=== PATIENT | male | born 1940 | race Caucasian/White ===

== ENCOUNTER 2016-12-16 08:07 | Inpatient (IN) ==
[2016-12-16] MEDS ORDERED: CLINDAMYCIN 600 MG/NS 600 MG/50 ML IVPB ONE (08:39)
[2016-12-16] MEDS ORDERED: LR 1,000 ML ONE (08:39)
[2016-12-16] MEDS ORDERED: KETAMINE ONE (09:49)
[2016-12-16] MEDS ORDERED: DIPRIVAN 1% ONE (09:49)
[2016-12-16] MEDS ORDERED: XYLOCAINE-MPF 2% ONE (10:02)
[2016-12-16] MEDS ORDERED: LABETALOL ONE (10:52)
[2016-12-16] MEDS ORDERED: OFIRMEV 1000 MG/ISOTONIC SOLN 1,000 MG/100 ML BOTTLE ONE (10:52)
[2016-12-16] MEDS ORDERED: HUMULIN R IV ONE (11:00)
[2016-12-16] MEDS ORDERED: NS 1,000 ML ONE (11:05)
--- NOTE | 2016-12-16 12:26 | OPERATIVE NOTE ---
PROCEDURE DATE : 12/16/2016 PREOPERATIVE DIAGNOSIS: History of forefoot amputation, now with ulceration at the middle of the sole of the remaining left foot. POSTOPERATIVE DIAGNOSIS: History of forefoot amputation, now with ulceration at the middle of the sole of the remaining left foot. PROCEDURE: 1. Debridement. 2. Anaerobic and aerobic cultures. SURGEON: Gurvinder Sparrow MD. DESCRIPTION OF PROCEDURE: The patient was brought to the operating room. After satisfactory induction of IV and MAC anesthesia, his left foot was prepped and draped in the appropriate manner. The skin around the ulcer was sharply excised. There was a deep boring component heading towards the second metatarsal area. It is possible the patient likely has osteomyelitis. He has been having a lot more pain in his foot. The wound was sharply debrided, and a sterile dressing with Betadine-soaked gauze was applied. He will be admitted for IV antibiotics and have a bone scan tomorrow to rule out osteo in that bone. He may eventually require a [id number] amputation. cc: Gurvinder Sparrow MD
[2016-12-16] MEDS ORDERED: ROBAXIN PO PRN (12:53)
[2016-12-16] MEDS ORDERED: HUMULIN R SUBQ SCH (13:00)
[2016-12-16] MEDS ORDERED: ZOFRAN IV PRN (13:02)
[2016-12-16] MEDS ORDERED: NORCO-10 PO PRN (13:02)
[2016-12-16] MEDS ORDERED: INSULIN PEN NEEDLES ONE (14:40)
[2016-12-16] MEDS: NEURONTIN PO SCH ×2 (14:54→21:39)
[2016-12-16] MEDS: LEVEMIR SUBQ SCH (14:55)
[2016-12-16] MEDS: 1/2 NS 1,000 ML IV SCH (14:56)
[2016-12-16] MEDS: HUMULIN R SUBQ SCH ×3 (15:59→21:40)
[2016-12-16] MEDS: CLINDAMYCIN 600 MG/NS 600 MG/50 ML IVPB IV SCH (17:44)
[2016-12-16] MEDS ORDERED: ZOCOR PO SCH (21:00)
[2016-12-16] MEDS: ULTRAM PO SCH (21:39)
[2016-12-17] MEDS: CLINDAMYCIN 600 MG/NS 600 MG/50 ML IVPB IV SCH ×3 (02:27→19:03)
[2016-12-17] MEDS: HUMULIN R SUBQ SCH ×4 (06:12→21:09)
[2016-12-17 08:33] LABS: MANUAL DIFF NEEDED? NO
[2016-12-17 08:36] LABS: BASO% 0.3 % (0.0-0.8); EOS# 0.03 X1000 (0.0-0.7); EOS% 0.4 % (0.0-10.0); HEMATOCRIT 41.3 % (42.0-52.0); HEMOGLOBIN 13.6 g/dL (14.0-18.0); LYMPH# 0.74 X1000 (1.2-3.4); LYMPH% 10.8 % (20.5-51.1); MCH 30.8 PG (27-31); MCHC 32.9 g/dL (33-37); MCV 93.4 FL (81-99); MONO# 0.63 X1000 (0.11-0.59); MONO% 9.2 % (1.7-9.3); MPV 10.9 FL (7.4-10.4); NEUT% 79.3 % (42.2-75.2); PLT 269 X1000 (130-400); RBC 4.42 XMIL (4.7-6.1)
[2016-12-17 08:49] LABS: AGAP 13; BUN 20 mg/dL (8-22); CALCIUM 9.2 mg/dL (8.8-10.2); CHLORIDE 95 mmol/L (98-107); COSMO 288; POTASSIUM 4.9 mmol/L (3.5-5.1); SODIUM 139 mmol/L (136-145); TCO2 31 mmol/L (25-35)
[2016-12-17] MEDS: ULTRAM PO SCH ×2 (09:21→21:11)
[2016-12-17] MEDS: MOBIC PO SCH (09:21)
[2016-12-17] MEDS: NORVASC PO SCH (09:22)
[2016-12-17] MEDS: PRILOSEC PO SCH (09:22)
[2016-12-17] MEDS: NEURONTIN PO SCH ×3 (09:22→21:12)
[2016-12-17] MEDS: TENORMIN PO SCH (09:22)
[2016-12-17] MEDS: VITAMIN B-12 PO SCH (09:23)
[2016-12-17] MEDS: PATIENT'S OWN MED PO SCH (09:24)
[2016-12-17] MEDS: LEVEMIR SUBQ SCH (09:24)
[2016-12-17] MEDS ORDERED: CUBICIN 500 MG in NS 100 ML IV SCH (10:00)
--- NOTE | 2016-12-17 10:03 | CONSULTATION ---
DATE OF CONSULTATION: 12/17/2016 CONCLUSION: The patient has infection of his left foot. During debridement performed by Dr. Sparrow, it appeared that the infection extended deep and quite possibly could involve the bone. Gram stain of the wound shows gram-positive cocci. RECOMMENDATIONS: I agree with Dr. Sparrow that we should switch to daptomycin. I have discontinued Zocor, while the patient is on daptomycin because the 2 can interact and cause an enhanced possibility of muscle toxicity. The patient is to have a bone scan today to detect if there is a bone infection. I have also ordered a CBC and BMP. ADDENDUM: I discussed with patient's about patient's reaction to daptomycin. It was severe so I will switch back to clindamycin pending culture result. DISCUSSION: The patient about approximately 6-8 weeks ago, developed an ulcer on his left foot. It became deeper and started hurting the patient, and it was also erythematous. The ulcer was debrided yesterday by Dr. Sparrow and in his op report, he says that the wound went deep and possibly to the bone. Gram stain of the material at surgery shows gram- positive cocci. PAST MEDICAL HISTORY/REVIEW OF SYSTEMS: Eyes and ears: Patient has decreased vision and hearing. Respiratory: No cough or shortness of breath. Cardiovascular: No chest pain or palpitations. GI: No nausea, vomiting, or diarrhea. Genitourinary: No dysuria or flank pain. Endocrine: Patient has diabetes but not thyroid disease. Bones, joints, muscles: See present illness on the patient's left foot. No other joint or bone problem. Neurologic: No seizures or loss of motor or sensory function. Integument: No rash. 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 He has had a right shoulder surgery, a surgery on his finger, an appendectomy, and surgery on his ear. MEDICAL DISEASES: Positive for diabetes mellitus, hypertension, hyperlipidemia , osteoarthritis, gastroesophageal reflux disease. INFECTIOUS DISEASE HISTORY: Negative for pneumonia and UTI. FAMILY HISTORY: Positive for diabetes mellitus, hypertension, myocardial infarction, and stroke. SOCIAL HISTORY[place] He does not smoke cigarettes. He occasionally drinks alcoholic beverages. He does not abuse drugs. He is . He has a dog as a pet. ALLERGIES: He has any drug allergies to include codeine, Levaquin, azithromycin , Keflex, daptomycin, enalapril, latex, and sulfa. HOME MEDICATIONS: Methocarbamol, tramadol, omeprazole, meloxicam, insulin, gabapentin, cyanocobalamin, chromium, Zocor, atenolol, and Norvasc. PHYSICAL EXAMINATION: Vital Signs: Temperature is 98 degrees, pulse 128, respirations 12, blood pressure 148/86. General: This is a somewhat ill-appearing elderly male. He is in no acute distress. Head, eyes, ears, nose, and throat: He wears glasses. He is edentulous. He has dentures in. He is very hard of hearing. Neck: No stiffness. Lungs: Clear to auscultation. Cardiovascular: Regular heart rate. Peripheral pulses are palpable. Abdomen: Soft and not tender. Neurologic: Patient is awake. As mentioned above, he is very hard of hearing. He can move his extremities. There is no tremor. His sensation is intact to touch. His memory, as regarding his medical history, was slightly diminished. Integument: No rash. Bones, joints, muscles: The left foot had a large dressing around it. The dressing is intact. Thank you for the consult. cc: MD Gurvinder Rivera MD MTDD
[2016-12-17] MEDS: 1/2 NS 1,000 ML IV SCH ×2 (11:14→13:30)
[2016-12-17] MEDS ORDERED: NS 250 ML ONE (14:57)
[2016-12-17 15:00] LABS: INR 1.05; PROTIME 11.1 Seconds (9.2-11.7)
--- NOTE | 2016-12-17 15:41 | Diag Imaging Result Doc PS360 ---
CHEST-1 VIEW - 12/17/2016 INDICATION: line placement TECHNIQUE: COMPARISON: 11/02/2016 FINDINGS: There is a new left-sided PICC line in good position with the catheter tip at the mid SVC. Stable borderline cardiomegaly. Stable small right pleural effusion. No new infiltrates. IMPRESSION: Good left-sided PICC line placement. Otherwise no change from the prior chest x-ray. Electronically signed by Barrett Mark 12/17/2016 3:39 PM
--- NOTE | 2016-12-17 16:22 | Diag Imaging Result Doc PS360 ---
3 PHASE BONE SCAN - 12/17/2016 INDICATION: R/O osteo left foot TECHNIQUE: 25.5 mCi of MDP was administered. Three-phase bone scan of the feet. COMPARISON: 05/28/2016 FINDINGS: There is significant diffuse hyperemia and blood pool phase activity of the left foot and ankle. On the right side this appears more normal. On the delayed phase, there is significant diffuse uptake throughout the left distal tibia and fibula, as well as all the bones of the foot. IMPRESSION: Severe left foot and ankle cellulitis. Apparent osteomyelitis of the left foot and ankle as well. Electronically signed by Barrett Mark 12/17/2016 4:20 PM
[2016-12-18] MEDS: CLINDAMYCIN 600 MG/NS 600 MG/50 ML IVPB IV SCH ×2 (02:16→11:26)
[2016-12-18] MEDS: HUMULIN R SUBQ SCH ×3 (07:03→11:42)
[2016-12-18 08:31] VITALS: BP 156/73
[2016-12-18] MEDS: TENORMIN PO SCH (09:24)
[2016-12-18] MEDS: NEURONTIN PO SCH (09:24)
[2016-12-18] MEDS: VITAMIN B-12 PO SCH (09:24)
[2016-12-18] MEDS: NORVASC PO SCH (09:24)
[2016-12-18] MEDS: LEVEMIR SUBQ SCH (09:25)
[2016-12-18] MEDS: PRILOSEC PO SCH (09:25)
[2016-12-18] MEDS: MOBIC PO SCH (09:25)
[2016-12-18] MEDS: ULTRAM PO SCH (09:38)
[2016-12-18] MEDS: PATIENT'S OWN MED PO SCH (09:39)
== END 2016-12-18 12:16 | disposition home or self-care (01) ==
LOC: 4N 08:07 → OR 08:07
PROVIDERS: ADMIT Surgery; ATTEND Surgery

== ENCOUNTER 2018-12-27 12:54 | Observation (INO) ==
--- NOTE | 2018-12-27 14:01 | Diag Imaging Result Doc PS360 ---
CHEST-2 VIEWS - 12/27/2018 INDICATION: Admission order COMPARISON: 11/03/2018 FINDINGS: Lungs are somewhat hyperexpanded. There is cardiomegaly and moderate pulmonary vascular congestion. There is a trace right pleural effusion. No left-sided effusion. No significant infiltrates or edema. IMPRESSION: Cardiomegaly and pulmonary vascular congestion. Trace right pleural effusion. Electronically signed by Barrett Mark 12/27/2018 1:59 PM
--- NOTE | 2018-12-27 14:11 | EKG Report ---
Test Performed on : 12/27/2018 1:47:33 PM Test Reason : Admission Order Blood Pressure : / mmHG Vent. Rate : 120 BPM Atrial Rate : 120 BPM P-R Int : 146 ms QRS Dur : 068 ms QT Int : 316 ms P-R-T Axes : 065 095 049 degrees QTc Int : 446 ms Sinus tachycardia. Rightward axis Borderline ECG Confirmed by Melissa RACHEL, Ky Porras ([id number]) on 12/27/2018 5:27:17 PM
[2018-12-27] MEDS ORDERED: KEFZOL 1 GM/D5W 1 GM/50 ML IVPB IV SCH (15:00)
[2018-12-27] MEDS: 1/2 NS 1,000 ML IV SCH (15:17)
[2018-12-27 15:24] LABS: BASO# 0.06 X1000 (0.0-0.2); BASO% 0.9 % (0.0-0.8); EOS# 0.08 X1000 (0.0-0.7); EOS% 1.2 % (0.0-10.0); HEMATOCRIT 36.3 % (42.0-52.0); HEMOGLOBIN 11.3 g/dL (14.0-18.0); IMM GRAN# 0.03 X1000 (0.0-0.04); IMM GRAN% 0.4 % (0.0-0.5); LYMPH# 1.24 X1000 (1.2-3.4); MCH 27.1 PG (27-31); MCHC 31.1 g/dL (33-37); MCV 87.1 FL (81-99); MONO# 1.33 X1000 (0.11-0.59); MONO% 19.3 % (1.7-9.3); MPV 10.5 FL (7.4-10.4); NEUT# 4.14 X1000 (1.4-6.5); NEUT% 60.2 % (42.2-75.2); PLT 320 X1000 (130-400); RBC 4.17 XMIL (4.7-6.1); RDW 14.4 % (11.5-14.5); WBC 6.88 X1000 (4.8-10.8)
[2018-12-27 15:56] LABS: URINE SOURCE CLEAN CATCH
[2018-12-27] MEDS ORDERED: KEFZOL 1 GM/D5W 1 GM/50 ML IVPB IV ONE (16:00)
[2018-12-27 16:06] LABS: ALB/GLOB RATIO 0.8; ALBUMIN 3.5 g/dL (3.5-5.0); CALCIUM 9.4 mg/dL (8.8-10.2); CREATININE 1.3 mg/dL (0.7-1.2); POTASSIUM 4.6 mmol/L (3.5-5.1); TOTAL BILIRUBIN 0.6 mg/dL (0.20-1.00); TOTAL PROTEIN 8.1 g/dL (6.3-8.3)
[2018-12-27] MEDS: NORCO-10 PO PRN (16:13)
[2018-12-27 16:18] LABS: BILIRUBIN URINE NEGATIVE (NEGATIVE); BLOOD URINE NEGATIVE (NEGATIVE); COLOR STRAW; GLUCOSE URINE 500 mg/dL (NEGATIVE); KETONE URINE NEGATIVE (NEGATIVE); LEUKOCYTES URINE NEGATIVE (NEGATIVE); NITRITE URINE NEGATIVE (NEGATIVE); PH URINE 6.5; PROTEIN URINE NEGATIVE (NEGATIVE); SP GRAVITY URINE 1.009; TURBIDITY URINE CLEAR (CLEAR); UR EPITHELIAL CELLS <10 /HPF (<10); URINE BACTERIA NEGATIVE /HPF; URINE RBC <10 /HPF (<10); URINE WBC <10 /HPF (<10); UROBILINOGEN URINE NORMAL (NORMAL)
--- NOTE | 2018-12-27 18:30 | Diag Imaging Result Doc PS360 ---
EXAM: US RENAL 2 (RETROPER) COMPLETE 12/27/2018 HISTORY: left flank pain TECHNIQUE: Renal ultrasound COMMENT: The urinary bladder is unremarkable. The post void residual volume is 101 mL. Prevoid bladder volume was 618 mL. The right kidney is 12.4 x 5.7 x 5 6.1 cm with a 1.2 cm cyst in the anterior cortex towards the upper pole. The left kidney is 11.8 x 5.3 x 5.8 cm with a 18 mm cyst in the mid anterior cortex. There is no evidence of hydronephrosis or solid masses or stones. IMPRESSION: No evidence of obstructive uropathy. Electronically signed by Jourdan Marmolejo 12/27/2018 6:28 PM
--- NOTE | 2018-12-27 21:55 | CONSULTATION ---
DATE OF CONSULTATION: 12/27/2018 PRESENT ILLNESS: Mr. Soto has been treated by us in the office for oxacillin-sensitive Staph aureus cellulitis to his left calf as well as a plantar ulcer to the left foot which also recently grew an oxacillin-sensitive Staph aureus. MEDICATIONS: He has been started on Kefzol 1 g IV every 8 hours, which we will continue, but we will increase the dose to 2 g IV every 8 hours. PHYSICAL EXAMINATION: Vital Signs: Temperature is 98.3 degrees, pulse rate 101, blood pressure 158/95, O2 saturation is 98% on room air. He is 79 kg and 6 foot 1 inch. General: This is a chronically ill-appearing, elderly gentleman. He is lying in the bed, currently in no acute distress. HEENT: He is very hard of hearing. Atraumatic, normocephalic. Oral mucous membranes are pink and moist. Conjunctivae are pink. Neck: Supple. Trachea is midline. Cardiovascular: Irregularly irregular with atrial fibrillation/atrial flutter on the monitor. Respiratory: Lung sounds are clear to auscultation in the upper lobes, diminished in the bases. Abdomen: Soft, flat, and nontender. However, he does have significant left flank pain from the side to the area of the left kidney, which he states started yesterday afternoon. Neurologic: He is awake, alert, oriented, and able to move around in the bed independently. Integumentary: There is a plantar ulcer to the left foot with a beefy red wound bed and raised white edges. There are also some erythematous areas to the left lower calf, as well as 2+ pitting edema. He has had previous transmetatarsal amputations bilaterally. LABORATORY/X-RAY: His white count is 6.88, hemoglobin 11.3, platelet count 320,000. The metabolic panel is pending. Chest x-ray shows cardiomegaly and pulmonary vascular congestion, but no infiltrates or edema. 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 At last check, there is a oxacillin-sensitive Staph aureus growing, so we will continue Ancef 2 g IV every 8 hours. Another culture has been taken of the left foot and we will await those results. Today, he is also complaining of severe pain to his left flank, which he states started yesterday afternoon, for which he has been taking a lot of pain pills. We will check a renal ultrasound as well as a postvoid residual since the patient states he does not think he is emptying his bladder well. A urinalysis has been ordered, but we will also add on a urine culture. These plans have been discussed with and recommended by Dr. Paredes. COMORBIDITIES: For Mr. Soto include, that he is elderly with diabetes mellitus and peripheral vascular disease. Dictated by TAI Valladares for Marvin Paredes MD cc: MD Gurvinder Rivera MD MTDD
[2018-12-28] MEDS: KEFZOL 2 GM/D5W 2 GM/50 ML IVPB IV SCH ×3 (00:14→19:04)
[2018-12-28] MEDS ORDERED: ROBAXIN PO PRN (05:47)
[2018-12-28] MEDS: PRILOSEC PO SCH (06:16)
[2018-12-28] MEDS ORDERED: HUMALOG SUBQ SCH (09:00)
[2018-12-28] MEDS: COREG PO SCH ×2 (10:21→20:52)
[2018-12-28] MEDS: VITAMIN B-12 PO SCH (10:22)
[2018-12-28] MEDS: DEMADEX PO SCH ×2 (10:22→20:52)
[2018-12-28] MEDS: DOXYCYCLINE PO SCH ×2 (10:23→20:52)
[2018-12-28] MEDS: NEURONTIN PO SCH ×3 (10:23→19:13)
[2018-12-28] MEDS: NORCO-10 PO PRN ×2 (10:33→20:52)
[2018-12-28] MEDS: LEVEMIR SUBQ SCH (10:35)
[2018-12-28] MEDS ORDERED: NS 250 ML ONE (10:37)
[2018-12-28] MEDS: HUMALOG SUBQ SCH ×4 (10:38→20:53)
[2018-12-28 10:40] LABS: INR 1.4; PROTIME 17.4 Seconds (11.0-16.0)
--- NOTE | 2018-12-28 12:21 | Diag Imaging Result Doc PS360 ---
EXAM: CHEST-PORTABLE 12/28/2018 HISTORY: PICC line placement TECHNIQUE: AP portable at 1207 COMMENT: There is a right pleural effusion. This was also present on 12/27/2018. There is a PICC line on the left with its tip in the superior vena cava. There is somewhat increased platelike atelectasis in the right upper lobe. IMPRESSION: Right pleural effusion and atelectasis. Electronically signed by Jourdan Marmolejo 12/28/2018 12:19 PM
[2018-12-28] MEDS: 1/2 NS 1,000 ML IV SCH (15:29)
--- NOTE | 2018-12-28 19:11 | Diag Imaging Result Doc PS360 ---
EXAM: CT RENAL STONE SEARCH - 12/28/2018 HISTORY: left flank pain TECHNIQUE: CT renal stone search without contrast COMPARISON: None. FINDINGS: There are extensive atherosclerotic calcifications. There is no discrete renal stone identified. There is no hydronephrosis. There is mild distal hydroureter on the left. There is nodular soft tissue fullness at anterior pelvic wall subcutaneous fat, possibly representing injection granulomas. There is mild inguinal adenopathy on the left. There are borderline inguinal lymph nodes on the right. There is no evidence of bowel obstruction. There is a moderate amount retained fecal debris in the colon. There is no free air. There are no calcified gallstones or pericholecystic inflammation identified. There is haziness of the central mesentery, possibly related to chronic panniculitis. There is probably chronic pleural effusion with pleural thickening and rounded atelectasis at the base of the right chest. IMPRESSION: No discrete renal stone. No hydronephrosis. Mild distention of distal left ureter. Nodular soft tissue fullness at lower anterior pelvic wall fat, possibly related to injection granulomas. Mild left inguinal adenopathy. Borderline right inguinal lymph nodes. Apparent constipation. Probably chronic right pleural effusion with right basilar pleural thickening and rounded atelectasis. This exam was performed using automated exposure control, adjustment of mA or kV according to patient size, and/or use of iterative reconstruction technique. Electronically signed by Cresencio West 12/28/2018 7:09 PM
[2018-12-28] MEDS ORDERED: ZOCOR PO SCH (21:00)
[2018-12-28] MEDS ORDERED: LEVEMIR SUBQ SCH (21:00)
[2018-12-28] MEDS ORDERED: FERROUS SULFATE PO SCH (21:00)
[2018-12-29] MEDS: KEFZOL 2 GM/D5W 2 GM/50 ML IVPB IV SCH (00:32)
[2018-12-29] MEDS: HUMALOG SUBQ SCH ×2 (06:05→12:08)
[2018-12-29] MEDS: PRILOSEC PO SCH (06:05)
[2018-12-29] MEDS ORDERED: D50W SYRINGE IV ONE (06:06)
[2018-12-29] MEDS: MAXIPIME 2 GM in NS 100 ML IV SCH ×2 (06:39→14:51)
[2018-12-29 08:35] LABS: AGAP 13; BUN 23 mg/dL (8-22); CALCIUM 9.9 mg/dL (8.8-10.2); CHLORIDE 95 mmol/L (98-107); COSMO 287; CREATININE 1.1 mg/dL (0.7-1.2); ESTIMATED GFR > 60; GLUCOSE 137 mg/dL (70-104); POTASSIUM 3.9 mmol/L (3.5-5.1); SODIUM 141 mmol/L (136-145); TCO2 33 mmol/L (25-35)
[2018-12-29 08:50] LABS: INR 1.26
[2018-12-29 08:51] LABS: PTT 34.7 Seconds (22.3-41.8)
[2018-12-29] MEDS ORDERED: KEFZOL 2 GM/D5W 2 GM/50 ML IVPB ONE (09:02)
[2018-12-29] MEDS ORDERED: VERSED ONE (09:07)
[2018-12-29] MEDS ORDERED: DIPRIVAN 1% ONE (09:33)
[2018-12-29] MEDS: VITAMIN B-12 PO SCH (12:02)
[2018-12-29] MEDS: COREG PO SCH (12:02)
[2018-12-29] MEDS: DEMADEX PO SCH (12:02)
[2018-12-29] MEDS: NEURONTIN PO SCH ×2 (12:02→14:38)
[2018-12-29] MEDS: LEVEMIR SUBQ SCH (12:04)
--- NOTE | 2018-12-29 14:17 | INFECTIOUS DISEASE PROGRESS NO ---
DATE: 12/29/2018 PRESENT ILLNESS: The patient is admitted to the hospital. He has an infected left foot ulcer which has been present for a long time and has not shown any change. He also has cellulitis of the left leg. MEDICATIONS: Currently, the patient is on Ancef and doxycycline. PHYSICAL EXAMINATION: Vital Signs: Temperature is 97.5 degrees, pulse 74, respirations 19, blood pressure 118/53. Generally: A chronically ill-appearing elderly male. He is in no acute distress. Head, eyes, ears, nose, and throat: The patient has decreased hearing. He can see near objects. He does not have any white patches on his tongue. Neck: No meningismus. Lungs: Clear to auscultation. Cardiovascular: Heart rate is irregular. Abdomen: Soft and nontender. Extremities: The patient has an erythematous area on the distal part of his left leg anteriorly. He also has a plantar ulcer that has beefy red tissue and the size has not changed. There is no surrounding erythema. There is some purulent drainage coming from the wound. The wound itself has beefy red tissue. Neurologic: The patient is awake. He can move his extremities. He is very hard of hearing. There is no tremor. LAB AND X-RAY: There is no new CBC or BMP. The patient's urine culture is negative. Culture from the patient's left foot is growing a Gram-negative jarett. Chest x-ray shows a right pleural effusion and atelectasis. Renal ultrasound showed no evidence of obstructive uropathy. ASSESSMENT AND PLAN: The patient has leg cellulitis and infected plantar ulcer with a gram- negative jarett. I have discontinued Ancef and doxycycline and put the patient on cefepime in a dose of 2 g IV every 8 hours. COMORBIDITIES: The patient is elderly. He is a diabetic and he has peripheral vascular disease. cc: MD Gurvinder Rivera MD
--- NOTE | 2018-12-29 14:21 | OPERATIVE NOTE ---
PROCEDURE DATE : 12/29/2018 PREOPERATIVE DIAGNOSIS: Cellulitis, left foot with previous forefoot amputation. POSTOPERATIVE DIAGNOSIS: Cellulitis, left foot with previous forefoot amputation. PROCEDURE: Debridement of nonhealing ulcer on sole of the foot. DESCRIPTION OF PROCEDURE: The patient was brought to the operating room. After satisfactory induction of IV and MAC anesthesia, his left foot was prepped and draped in the appropriate manner. The necrotic skin around the edge of the nonhealing ulcer was excised. There was minimal bleeding. The wound was packed with Betadine-soaked gauze and Kerlix and an Dung. He was awakened in the operating room and transferred to recovery. ESTIMATED BLOOD LOSS: Less than 5 mL. cc: Gurvinder Sparrow MD
[2018-12-29] MEDS: 1/2 NS 1,000 ML IV SCH (14:40)
[2018-12-29 16:56] VITALS: BP 124/75
--- NOTE | 2018-12-29 18:50 | INFECTIOUS DISEASE PROGRESS NO ---
DATE: 12/29/2018 ADDENDUM: The patient's wound grew out pseudomonas. It is susceptible to all antibiotics tested. Unfortunately, the patient is allergic to quinolone antibiotics, so I will be treating the patient with cefepime 2 g IV every 8 hours for a total of 3 weeks. I have requested that the patient come to my office for an appointment in 3 weeks, at which time we will hopefully be able to stop the antibiotic and remove the patient's PICC. cc: MD Gurvinder Rivera MD
== END 2018-12-29 17:05 | disposition home health service (06) ==
LOC: DIRADM → 1N 12:54
PROVIDERS: ADMIT Surgery; ATTEND Surgery